=== PATIENT | male | born 1985 | race Caucasian/White ===

== ENCOUNTER 2021-01-06 06:02 | Emergency (ER) | payer SELFPAY ==
[~2021-01-06] VITALS: Ht 175.3 cm; Wt 100.0 kg
[~2021-01-06 06:02] MED LIST: CYMBALTA 60MG60 MG PO; KADIAN30 MG PO; METHADONE H10 MG/TAB; MOBIC15 MG PO; NEURONTIN600 MG/TAB PO; ROXICODONE30 MG PO; VALIUM 5MG T5 MG/TAB PO; XANAX 1MG1 MG
[2021-01-06 06:11] VITALS: BP 156/76; PULSE 106
[2021-01-06] MEDS ORDERED: AMOXICILLIN 50500 MG PO ×3 (06:49→06:59)
[2021-01-06] MEDS ORDERED: PERCOCET 325 MG1 TA2 PO ×3 (06:49→06:59)
== END 2021-01-06 07:04 | disposition home or self-care (01) ==
LOC: COL.ER 06:02
DX: K02.9 Dental caries, unspecified (principal); F17.210 Nicotine dependence, cigarettes, uncomplicated